=== PATIENT | female | born 1980 | race African-American/Black ===

== ENCOUNTER 2017-04-05 08:03 | Emergency (ER) | payer SELFPAY ==
[~2017-04-05] VITALS: Ht 160 cm; Wt 59.0 kg
[2017-04-05] MEDS ORDERED: SODIUM CHLORIDE 0.9% 1,000 ML IV ONE (08:33)
[2017-04-05 08:36] VITALS: BP 108/72
[2017-04-05] MEDS ORDERED: ONDANSETRON HCL 4MG/2ML VIAL IV ONE (08:45)
[2017-04-05 08:56] LABS: BASOPHILS % 0.4 % (0.0-2.0); EOSINOPHILS % 0.2 % (0.0-5.0); HEMOGLOBIN. 13.6 g/dL (12.0-16.0); LYMPHOCYTES % 13.7 % (20.0-50.0); MEAN CORPUSCULAR HEMOGLOBIN 30.5 pg (28.0-32.0); MEAN CORPUSCULAR VOLUME 89.6 fL (81.0-99.0); MEAN PLATELET VOLUME 8.6 fl (7.4-10.4); MONOCYTES % 4.3 % (2.0-8.0); NEUTROPHILS % 81.4 % (40.0-76.0); PLATELET 235 x1000/uL (130-400); RED BLOOD CELL COUNT 4.46 mill/uL (4.2-5.4); RED CELL DISTRIBUTION WIDTH 14.5 % (11.6-14.6)
[2017-04-05 09:14] LABS: CARBON DIOXIDE 26 mEq/L (21-32); CHLORIDE 100 mEq/L (98-107)
[2017-04-05 09:33] LABS: B-HCG QUANTITATIVE 60619 mIU/mL (<3)
[2017-04-05] MEDS ORDERED: ONDANSETRON 4MG ODT PO ONE (10:00)
== END 2017-04-05 10:52 | disposition home or self-care (01) ==
LOC: ER 09:00
DX: O20.0 Threatened abortion (principal); O21.0 Mild hyperemesis gravidarum; Z3A.01 Less than 8 weeks gestation of pregnancy; Z98.890 Other specified postprocedural states
CPT/HCPCS: 36415; 76801; 76817; 80048; 84702; 85025; 86850; 86900; 86901; 99285; Q0162; Z7610; J2405; J7030

== ENCOUNTER 2017-04-07 12:16 | Emergency (ER) | payer SELFPAY ==
[~2017-04-07] VITALS: Ht 162.6 cm; Wt 65.0 kg
[2017-04-07] MEDS ORDERED: SODIUM CHLORIDE 0.9% 1,000 ML IV ONE ×2 (12:42→16:45)
[2017-04-07] MEDS ORDERED: METOCLOPRAMIDE HCL 10MG/2ML VIAL IV ONE (12:45)
[2017-04-07 15:06] LABS: BASOPHILS % 0.4 % (0.0-2.0); EOSINOPHILS % 0.1 % (0.0-5.0); HEMATOCRIT. 34.8 % (36.0-48.0); HEMOGLOBIN. 11.9 g/dL (12.0-16.0); LYMPHOCYTES % 11.2 % (20.0-50.0); MEAN CORPUSCULAR HEMOGLOBIN 30.5 pg (28.0-32.0); MEAN CORPUSCULAR VOLUME 89.3 fL (81.0-99.0); MEAN PLATELET VOLUME 8.8 fl (7.4-10.4); MONOCYTES % 5.2 % (2.0-8.0); NEUTROPHILS % 83.1 % (40.0-76.0); PLATELET 211 x1000/uL (130-400); RED BLOOD CELL COUNT 3.89 mill/uL (4.2-5.4); RED CELL DISTRIBUTION WIDTH 14.1 % (11.6-14.6)
[2017-04-07] MEDS ORDERED: ONDANSETRON HCL 4MG/2ML VIAL IV ONE (16:45)
[2017-04-07 17:40] LABS: CLARITY URINE CLOUDY (CLEAR); COLOR URINE DARK YELLOW (YELLOW); GLUCOSE URINE NEGATIVE (NEGATIVE); KETONES URINE 3+ (NEGATIVE); LEUKOCYTE ESTERASE URINE NEGATIVE (NEGATIVE); NITRITE URINE NEGATIVE (NEGATIVE); OCCULT BLOOD URINE NEGATIVE (NEGATIVE); PROTEIN URINE 2+ (NEGATIVE); SPECIFIC GRAVITY URINE 1.038 (1.005-1.030)
[2017-04-07 19:31] VITALS: BP 99/66
== END 2017-04-07 19:33 | disposition home or self-care (01) ==
LOC: ER 12:24
DX: O23.41 Unspecified infection of urinary tract in pregnancy, first trimester (principal); Z3A.01 Less than 8 weeks gestation of pregnancy
CPT/HCPCS: 36415; 81001; 84702; 85025; 96361; 96374; 96375; 99284; J2405; J2765; J7030; Z7610